=== PATIENT | female | born 1945 | race Caucasian/White ===

== ENCOUNTER → 2017-03-14 | Outpatient (CLI) | payer MEDICARE, BC ==
[~2017-03-14] MED LIST: ACYC-113 PO; ALBU0.63 NEB; ALBU18HF INH; ALPR-475 PO; AZIT500T5 PO; BENZ200C48 PO; CEFD300C37 PO; FEBU40TA PO; FLUT1AER INH; GUAI120L37 PO; LEVO100T5 PO; LEVO750T26 PO; LEVO750T6 PO; LISI2.5T PO; LORA10TA72 PO; OMEP20CA9 PO; OMEP20TA62 PO; SIMV20TA3 PO; SODI325T PO
== END | disposition home or self-care (01) ==
LOC: CFH 12:55
PROVIDERS: ATTEND Internal Medicine Hematology & Oncology
DX: H70.93 Unspecified mastoiditis, bilateral (principal); K57.90 Diverticulosis of intestine, part unspecified, without perforation or abscess without bleeding; J84.89 Other specified interstitial pulmonary diseases; C91.11 Chronic lymphocytic leukemia of B-cell type in remission
CPT/HCPCS: 70490; 71250; 74176

== ENCOUNTER → 2017-06-07 | Outpatient (CLI) | payer MEDICARE, BC | END | disposition home or self-care (01) | LOC: CFH 15:01 | PROVIDERS: ATTEND Nurse Practitioner Family | DX: J84.10 Pulmonary fibrosis, unspecified (principal); R91.8 Other nonspecific abnormal finding of lung field | CPT/HCPCS: 71250 ==

== ENCOUNTER → 2017-10-03 | Outpatient (CLI) | payer MEDICARE, BC | END | disposition home or self-care (01) | LOC: RAD 13:33 | PROVIDERS: ATTEND Nurse Practitioner Family | DX: J84.9 Interstitial pulmonary disease, unspecified (principal); J98.4 Other disorders of lung | CPT/HCPCS: 71250 ==